=== PATIENT | male | born 1960 | race Caucasian/White ===

== ENCOUNTER 2018-01-08 15:13 | Inpatient (IN) | payer OTHER ==
[~2018-01-08] VITALS: Ht 172.7 cm; Wt 88.3 kg
[2018-01-08 16:20] LABS: HEMATOCRIT 33.7 % (38.0-50.0); HEMOGLOBIN 11.8 G/DL (12.5-16.6); MCH 30.6 PG (29.0-34.0); MCV 87.3 FL (86-99); NRBC (%) 0.2 /100 WBC (0-0); PLATELET COUNT 187 K/uL (156-360); RBC DIS.WIDTH-CV 14.5 % (11.8-14.6); RBC DIS.WIDTH-SD 46.9 % (39-53); RED BLOOD COUNT 3.86 M/uL (4.00-5.50); WHITE BLOOD COUNT 10.1 K/uL (4.1-10.2)
[2018-01-08 16:30] LABS: ALBUMIN 3.4 g/dL (3.2-4.8)
[2018-01-08 16:31] LABS: CHLORIDE 104 mEq/L (99-109); POTASSIUM 3.1 mEq/L (3.7-5.4); SODIUM 142 mEq/L (136-147)
[2018-01-08 16:33] LABS: GLUCOSE 133 mg/dL (70-99); TOTAL PROTEIN 7.5 g/dL (6.4-8.3)
[2018-01-08 16:35] LABS: TOTAL BILIRUBIN 2.4 mg/dL (0.0-1.0)
[2018-01-08 16:36] LABS: ALKALINE PHOSPHATASE 189 IU/L (3-129)
[2018-01-08 16:37] LABS: GFR ESTIMATE (CALCULATED) 37 mL/min/ (58.99-99999)
[2018-01-08 16:38] LABS: AST (GOT) 54 IU/L (2-34); UREA NITROGEN (BUN) 45 mg/dL (9-23)
[2018-01-08 16:39] LABS: ALT (GPT) 36 IU/L (3-49)
[2018-01-08] MEDS ORDERED: ASPIRIN325 MG PO (20:19)
[2018-01-08] MEDS ORDERED: ZOLPIDEM TARTRA10 MG PO (20:19)
[2018-01-08] MEDS ORDERED: OXYCODONE HCL5 MG PO (20:20)
[2018-01-08] MEDS ORDERED: FENTANYL1 EAC3 TD (20:20)
[2018-01-08] MEDS ORDERED: AMITRIPTYLINE H25 MG PO (20:20)
[2018-01-08] MEDS ORDERED: LOSARTAN-HCTZ1 EAC2 PO (20:21)
[2018-01-08 20:34] LABS: TROP-I INTERPRETATION NEGATIVE; TROPONIN-I < 0.01 ng/mL (0.0-0.30)
[2018-01-08 21:14] LABS: BASE EXCESS -0.9 mEq/L (-3 to +3); BICARBONATE 23.5 mEq/L (22-26); CARBOXY HGB 1.8 % (0-5); COMMENTS - BLOOD GASES A+C+; DEVICE NC; METHEMOGLOBIN 1.2 % (0-1.5); O2 FLOW 2 L/MIN; PCO2 37 mm Hg (35-45); PO2 100 mm Hg (80-100); SITE RR; TOTAL RESP RATE 21 resp/min; pH 7.41 (7.35-7.45)
[2018-01-08 21:22] LABS: CHLORIDE 108 mEq/L (99-109); POTASSIUM 3.2 mEq/L (3.7-5.4); SODIUM 142 mEq/L (136-147)
[2018-01-08 21:24] LABS: GLUCOSE 106 mg/dL (70-99)
[2018-01-08 21:28] LABS: CREATININE 1.7 mg/dL (0.6-1.3); GFR ESTIMATE (CALCULATED) 44 mL/min/ (58.99-99999)
[2018-01-08 21:29] LABS: UREA NITROGEN (BUN) 43 mg/dL (9-23)
[2018-01-08 21:51] VITALS: BP 135/78
[2018-01-08 22:52] LABS: MAGNESIUM 1.8 mg/dL (1.3-2.7)
[2018-01-09 03:04] LABS: HEMOGLOBIN 10.3 G/DL (12.5-16.6); MCH 30.1 PG (29.0-34.0); MCHC 34.3 G/DL (30.0-36.0); MCV 87.7 FL (86-99); PLATELET COUNT 179 K/uL (156-360); RBC DIS.WIDTH-CV 14.5 % (11.8-14.6); RBC DIS.WIDTH-SD 46.3 % (39-53); RED BLOOD COUNT 3.42 M/uL (4.00-5.50); WHITE BLOOD COUNT 8.6 K/uL (4.1-10.2)
[2018-01-09 03:21] LABS: ALBUMIN 2.9 g/dL (3.2-4.8)
[2018-01-09 03:22] LABS: CHLORIDE 106 mEq/L (99-109); POTASSIUM 3.3 mEq/L (3.7-5.4); SODIUM 143 mEq/L (136-147)
[2018-01-09 03:24] LABS: GLUCOSE 90 mg/dL (70-99)
[2018-01-09 03:27] LABS: ALKALINE PHOSPHATASE 176 IU/L (3-129)
[2018-01-09 03:28] LABS: CREATININE 1.7 mg/dL (0.6-1.3); GFR ESTIMATE (CALCULATED) 44 mL/min/ (58.99-99999)
[2018-01-09 03:29] LABS: AST (GOT) 46 IU/L (2-34); DIRECT BILIRUBIN 1.4 mg/dL (0.0-0.3); UREA NITROGEN (BUN) 39 mg/dL (9-23)
[2018-01-09 03:31] LABS: ALT (GPT) 32 IU/L (3-49)
[2018-01-09 03:33] LABS: TROP-I INTERPRETATION NEGATIVE; TROPONIN-I < 0.01 ng/mL (0.0-0.30)
[2018-01-09 03:44] LABS: TOTAL BILIRUBIN 1.9 mg/dL (0.0-1.0); TOTAL PROTEIN 5.7 g/dL (6.4-8.3)
[2018-01-09 04:15] VITALS: BP 141/80
[2018-01-09 06:51] LABS: ABS NEUTROPHIL COUNT 5.1; ATYPICAL LYMPHOCYTE 3.5 %; BAND NEUTROPHILS 3.5 % (0-8.0); BASOPHILS 0.9 %; EOSINOPHIL ABS CT 0.5; EOSINOPHILS 6.1 % (0-5.0); GIANT PLATELETS 2+; LYMPHOCYTES 21.7 % (15.0-45.0); MONOCYTES 8.7 % (0-9.0); PLAT.SUFFICIENCY ADEQUATE; PLATELET CLUMPS PRESENT - PLATELET COUNT APPEARS ADQ.; SEG.NEUTROPHILS 55.6 % (46.0-76.0); TOXIC GRANULATION 2+
[2018-01-09 07:46] VITALS: BP 118/67
[2018-01-09 09:33] LABS: TROP-I INTERPRETATION NEGATIVE; TROPONIN-I < 0.01 ng/mL (0.0-0.30)
[2018-01-09 12:11] VITALS: BP 120/70
[2018-01-09 20:24] VITALS: BP 111/55
[2018-01-09 23:40] VITALS: BP 135/69
[2018-01-10 07:18] VITALS: BP 134/67
[2018-01-10 09:23] LABS: BASOPHIL (%) 0.2 % (0-1); EOSINOPHIL (%) 3.3 % (0-5); EOSINOPHIL COUNT 0.3 K/uL (0-0.3); HEMATOCRIT 30.9 % (38.0-50.0); HEMOGLOBIN 10.3 G/DL (12.5-16.6); LYMPHOCYTE COUNT 1.3 K/uL (1.0-2.8); MCH 29.9 PG (29.0-34.0); MCHC 33.3 G/DL (30.0-36.0); MCV 89.6 FL (86-99); MONOCYTE (%) 7.2 % (3-12); MONOCYTE COUNT 0.6 K/uL (0-0.8); NEUTROPHIL (%) 70.3 % (45-76); NEUTROPHIL COUNT 6.1 K/uL (1.8-6.4); PLATELET COUNT 185 K/uL (156-360); RBC DIS.WIDTH-CV 14.8 % (11.8-14.6); RBC DIS.WIDTH-SD 48.2 % (39-53); RED BLOOD COUNT 3.45 M/uL (4.00-5.50); WHITE BLOOD COUNT 8.7 K/uL (4.1-10.2)
[2018-01-10 09:51] LABS: HEMOGLOBIN A1c (GLYCOHEMOGLOB) 6.6 % (Below 5.7)
[2018-01-10 09:56] LABS: CHLORIDE 105 MEQ/L (99-109); CREATININE 1.3 MG/DL (0.6-1.3); GFR ESTIMATE (CALCULATED) > 59 mL/min/ (58.99-99999); GLUCOSE 135 mg/dL (70-99); SODIUM 142 MEQ/L (136-147); UREA NITROGEN (BUN) 26 mg/dL (9-23)
[2018-01-10 11:17] VITALS: BP 125/73
[2018-01-10 15:57] VITALS: BP 127/70
[2018-01-10 19:22] VITALS: BP 124/70
[2018-01-10 23:34] VITALS: BP 132/72
[2018-01-11 03:38] VITALS: BP 126/71
[2018-01-11 05:43] LABS: BASOPHIL (%) 0.2 % (0-1); EOSINOPHIL (%) 0.7 % (0-5); EOSINOPHIL COUNT 0.1 K/uL (0-0.3); HEMATOCRIT 32.6 % (38.0-50.0); HEMOGLOBIN 10.6 G/DL (12.5-16.6); IMMATURE GRANULOCYTE (%) 2.4 % (0.0-0.7); LYMPHOCYTE (%) 10.6 % (15-42); LYMPHOCYTE COUNT 1.3 K/uL (1.0-2.8); MCHC 32.5 G/DL (30.0-36.0); MCV 89.3 FL (86-99); MONOCYTE (%) 4.6 % (3-12); MONOCYTE COUNT 0.6 K/uL (0-0.8); NEUTROPHIL (%) 81.5 % (45-76); PLATELET COUNT 229 K/uL (156-360); RBC DIS.WIDTH-CV 14.5 % (11.8-14.6); RBC DIS.WIDTH-SD 47.4 % (39-53); RED BLOOD COUNT 3.65 M/uL (4.00-5.50); WHITE BLOOD COUNT 12.3 K/uL (4.1-10.2)
[2018-01-11 06:05] LABS: CHLORIDE 106 MEQ/L (99-109); CREATININE 1.3 MG/DL (0.6-1.3); GFR ESTIMATE (CALCULATED) > 59 mL/min/ (58.99-99999); GLUCOSE 123 mg/dL (70-99); SODIUM 142 MEQ/L (136-147); UREA NITROGEN (BUN) 21 mg/dL (9-23)
[2018-01-11 07:44] VITALS: BP 124/74
[2018-01-11 11:39] VITALS: BP 111/63
[2018-01-11 17:32] VITALS: BP 120/62
[2018-01-11 20:00] VITALS: BP 115/65
[2018-01-12] VITALS: BP 121/66
[2018-01-12 04:00] VITALS: BP 102/60
[2018-01-12 07:18] VITALS: BP 111/59
[2018-01-12 15:29] VITALS: BP 131/64
[2018-01-12 23:46] VITALS: BP 109/66
[2018-01-13 08:15] VITALS: BP 115/69
[2018-01-13 16:04] LABS: C DIFF TOXIN NEGATIVE (NEGATIVE)
[2018-01-13 16:09] VITALS: BP 121/73
[2018-01-14 00:16] VITALS: BP 119/63
[2018-01-14 06:52] LABS: BASOPHIL (%) 0.4 % (0-1); EOSINOPHIL (%) 3.4 % (0-5); EOSINOPHIL COUNT 0.3 K/uL (0-0.3); HEMATOCRIT 29.1 % (38.0-50.0); HEMOGLOBIN 9.9 G/DL (12.5-16.6); IMMATURE GRANULOCYTE (%) 0.2 % (0.0-0.7); LYMPHOCYTE (%) 21.2 % (15-42); MCH 29.9 PG (29.0-34.0); MCV 87.9 FL (86-99); MONOCYTE (%) 8.4 % (3-12); MONOCYTE COUNT 0.8 K/uL (0-0.8); NEUTROPHIL (%) 66.4 % (45-76); NEUTROPHIL COUNT 6.2 K/uL (1.8-6.4); RBC DIS.WIDTH-CV 13.8 % (11.8-14.6); RBC DIS.WIDTH-SD 44.6 % (39-53); RED BLOOD COUNT 3.31 M/uL (4.00-5.50); WHITE BLOOD COUNT 9.3 K/uL (4.1-10.2)
[2018-01-14 06:56] LABS: PLATELET COUNT 310 K/uL (156-360)
[2018-01-14 07:21] LABS: CHLORIDE 105 MEQ/L (99-109); CREATININE 1.1 MG/DL (0.6-1.3); GFR ESTIMATE (CALCULATED) > 59 mL/min/ (58.99-99999); GLUCOSE 115 mg/dL (70-99); POTASSIUM 3.6 MEQ/L (3.7-5.4); SODIUM 138 MEQ/L (136-147); UREA NITROGEN (BUN) 12 mg/dL (9-23)
[2018-01-14 07:50] VITALS: BP 107/74
[2018-01-14] MEDS ORDERED: LEVAQUIN500 MG PO (12:09)
== END 2018-01-14 13:39 | disposition home or self-care (01) | DRG 682 ==
LOC: EME 15:13 → 5SOUTH 20:42 → EDOF 20:42 → ENRESERV 20:53 → 5SOUTH 21:38
PROVIDERS: Emergency Medicine; Hospitalist; Internal Medicine; Internal Medicine Pulmonary Disease; Nurse Practitioner Adult Health
DX: N17.9 Acute kidney failure, unspecified (principal); J15.4 Pneumonia due to other streptococci; J98.11 Atelectasis; M45.9 Ankylosing spondylitis of unspecified sites in spine; G89.29 Other chronic pain; R09.02 Hypoxemia; R73.9 Hyperglycemia, unspecified; E87.6 Hypokalemia; K76.89 Other specified diseases of liver; Q79.1 Other congenital malformations of diaphragm; Z79.82 Long term (current) use of aspirin; Z79.891 Long term (current) use of opiate analgesic; R79.1 Abnormal coagulation profile
CPT/HCPCS: 36600; 71045; 71046; 71250; 74176; 76604; 78582; 80048; 80048 91; 80053; 80076; 82803; 83036; 83735; 84484; 85025; 85027; 85379; 87040; 87070; 87205; 87449; 87493; 93005; 93970; 94640; 94640 76; 94799; 99202; 99281; 99285; A9539; A9540; J0295; J0456; J0696; J1644; J1650; J1956; J2405; J2765; J3475; J7030; J7050